=== PATIENT | female | born 1950 | race Caucasian/White ===

== ENCOUNTER 2017-12-11 06:31 | Day surgery (SDC) | payer MEDICARE, BC ==
[2017-12-11] MEDS ORDERED: Lactated Ringers 1,000 ML IV SCH (07:00)
[2017-12-11] MEDS ORDERED: Midazolam 1 MG/ML 2 ML SDV ONE (07:17)
[2017-12-11] MEDS ORDERED: Propofol 200 MG/20 ML SDV ONE (07:17)
[2017-12-11] MEDS ORDERED: fentaNYL 100 MCG/2 ML SDV ONE (07:17)
[2017-12-11] MEDS ORDERED: Ondansetron 4 MG/2 ML SDV ONE (07:44)
[2017-12-11 09:04] VITALS: BP 109/68
--- NOTE | 2017-12-11 11:29 | OR ---
DATE OF PROCEDURE: 12/11/2017 PREOPERATIVE DIAGNOSIS: History of tubular adenomas. POSTOPERATIVE DIAGNOSES: 1. Diverticulosis. 2. History of tubular adenomas. PROCEDURE: Colonoscopy to the cecum. ANESTHESIA: IV anesthesia with monitored anesthesia care. INDICATION: This 67-year-old white female is referred for a colonoscopy because of a history of tubular adenomas. Her last colonoscopic exam, she says, was done 3 years ago. I counseled her for the procedure including risks and alternatives, and she gave her informed consent to proceed. DESCRIPTION OF PROCEDURE: The patient was placed in the left lateral decubitus position. IV anesthesia was administered by the Anesthesia Service. Time-out was held. A rectal exam was performed, which was unremarkable. The flexible video Olympus colonoscope was introduced through her anus, up her rectum, and out her colon, all the way to the cecum. En route, we saw a few scattered left-sided diverticula. There was no bleeding or inflammation associated with them. Once the cecum was reached, the scope was slowly withdrawn, examining the mucosa throughout. No additional mucosal abnormalities were noted. The scope was retroflexed in the rectum with the distal rectum appearing unremarkable. The scope was straightened and removed. She tolerated the procedure well. El Blevins MD /[id number]
== END 2017-12-11 09:25 | disposition home or self-care (01) ==
LOC: JP.SDS 06:31
PROVIDERS: ATTEND Surgery
DX: Z12.11 Encounter for screening for malignant neoplasm of colon (principal); K57.30 Diverticulosis of large intestine without perforation or abscess without bleeding; Z86.010 Personal history of colon polyps; Z88.0 Allergy status to penicillin; Z88.5 Allergy status to narcotic agent; Z88.8 Allergy status to other drugs, medicaments and biological substances; Z91.048 Other nonmedicinal substance allergy status
CPT/HCPCS: G0105; J2250; J2405; J2704; J3010; J7120

== ENCOUNTER 2022-12-23 06:28 | Day surgery (SDC) | payer MEDICARE, BC ==
[2022-12-23] MEDS ORDERED: Lactated Ringers 1,000 ML IV SCH (07:00)
[2022-12-23] MEDS ORDERED: Ondansetron 4 MG/2 ML SDV ONE (07:17)
[2022-12-23] MEDS ORDERED: Propofol 200 MG/20 ML SDV ONE (07:17)
[2022-12-23] MEDS ORDERED: fentaNYL 100 MCG/2 ML SDV ONE (07:17)
[2022-12-23 09:37] VITALS: BP 122/62; PULSE 50
== END 2022-12-23 10:00 | disposition home or self-care (01) ==
LOC: JP.SDS 06:28
PROVIDERS: ATTEND Family Medicine
DX: Z12.11 Encounter for screening for malignant neoplasm of colon (principal); D12.2 Benign neoplasm of ascending colon; K64.4 Residual hemorrhoidal skin tags; M06.9 Rheumatoid arthritis, unspecified; E78.5 Hyperlipidemia, unspecified; E03.9 Hypothyroidism, unspecified; F41.9 Anxiety disorder, unspecified; Z88.0 Allergy status to penicillin; Z88.5 Allergy status to narcotic agent; Z88.8 Allergy status to other drugs, medicaments and biological substances; Z80.0 Family history of malignant neoplasm of digestive organs; Z85.53 Personal history of malignant neoplasm of renal pelvis
CPT/HCPCS: 45380; J2405; J2704; J3010; J7120; 88305